=== PATIENT | male | born 1970 | race Hispanic/Latino ===

== ENCOUNTER 2019-01-09 12:39 | Emergency (ER) | payer SELFPAY ==
[~2019-01-09 12:39] MED LIST: INSNPH SQ; METF500T3 PO; RIVA10TA PO; TRAM50TA4 PO; [UNRECOGNIZED DRUG - CODE] MC
[2019-01-09] MEDS ORDERED: IBUPROFEN 600 MG TABLET ONE (13:22)
== END 2019-01-09 13:46 | disposition home or self-care (01) ==
LOC: EDH 12:39
DX: S92.311A Displaced fracture of first metatarsal bone, right foot, initial encounter for closed fracture (principal); E11.9 Type 2 diabetes mellitus without complications; Z72.0 Tobacco use; X58.XXXA Exposure to other specified factors, initial encounter; Y93.89 Activity, other specified; Y92.69 Other specified industrial and construction area as the place of occurrence of the external cause; Y99.8 Other external cause status
CPT/HCPCS: 73630

== ENCOUNTER 2020-06-20 14:12 | Emergency (ER) | payer SELFPAY ==
[2020-06-20] MEDS ORDERED: KETOROLAC 30MG VIAL (30MG/ML) ONE (15:09)
[2020-06-20] MEDS ORDERED: HYDROCODONE/ACETAMINOPHEN 5/325 MG TAB ONE (15:10)
== END 2020-06-20 16:17 | disposition home or self-care (01) ==
LOC: EDH 14:12
DX: M54.30 Sciatica, unspecified side (principal); E11.9 Type 2 diabetes mellitus without complications
CPT/HCPCS: 72192; 96372; 99284; J1885

== ENCOUNTER 2020-10-13 13:51 | Inpatient (IN) | payer OTHER ==
[~2020-10-13] VITALS: Ht 177.8 cm; Wt 73.0 kg
[2020-10-13 16:13] LABS: BASOPHILS % (AUTO) 0.4 % (0.0-5.0); EOSINOPHILS % (AUTO) 0.2 % (0.0-8.0); LYMPHOCYTES % (AUTO) 3.3 % (21.0-51.0); MEAN CORPUSCULAR HEMOGLOBIN 31.7 pg (27.0-33.0); MEAN CORPUSCULAR HGB CONC 33.5 g/dL (32.0-36.0); MEAN CORPUSCULAR VOLUME 94.6 fL (79-99); MONOCYTES % (AUTO) 7.8 % (3.0-13.0); NEUTROPHILS % (AUTO) 87.4 % (40.0-77.0); PLATELET COUNT (AUTO) 339 K/uL (130-400); RED BLOOD CELL COUNT(AUTO) 4.23 MIL/uL (4.50-6.20); RED CELL DISTRIBUTION WIDTH 12.3 % (11.0-15.5); WHITE BLOOD COUNT (AUTO) 18.6 K/uL (4.8-10.8)
[2020-10-13 16:33] LABS: CREATININE 0.8 mg/dL (0.5-1.5); POTASSIUM 4.3 mmol/L (3.5-5.1)
[2020-10-13 16:37] LABS: ALBUMIN 3.4 g/dL (3.5-5.0); BILIRUBIN,TOTAL 0.5 mg/dL (0.2-1.0); TOTAL PROTEIN, SERUM 8.8 g/dL (6.0-8.3)
[2020-10-13] MEDS ORDERED: ZOSYN 3.375GM+NS 50ML 50 ML IV ONE (16:58)
[2020-10-13] MEDS ORDERED: INSULIN HUMULIN R 100 UNIT/ML 3ML ONE (16:59)
[2020-10-13] MEDS ORDERED: ONDANSETRON HCL 4 MG/2 ML VIAL ONE (18:15)
[2020-10-13] MEDS ORDERED: MORPHINE SULFATE 2 MG/ML 1ML SYG ONE ×2 (18:15→23:16)
[2020-10-13 18:45] LABS: ABG OXYGEN SATURATION 41.3 % (95.0-99.0); BASE EXCESS,VENOUS BLOOD GAS -4.3 (-2.0-3.0); HCO3,VENOUS BLOOD GAS 20.6 (21.0-28.0); PCO2,VENOUS BLOOD GAS 37 (35-48); PH,VENOUS BLOOD GAS 7.359 (7.350-7.450)
[2020-10-13] MEDS: CEFEPIME HCL 2 GM VIAL IVP SCH (19:15)
[2020-10-13] MEDS ORDERED: GLUCAGON 1MG KIT 1 MG ML IM PRN (19:15)
[2020-10-13] MEDS: SODIUM CHLORIDE 0.9% 1000ML 1,000 ML IV SCH (19:15)
[2020-10-13] MEDS ORDERED: VANCOMYCIN PROTOCOL PER PHARMACY IV SCH (19:15)
[2020-10-13] MEDS ORDERED: ONDANSETRON HCL 4 MG/2 ML VIAL IV PRN (19:15)
[2020-10-13] MEDS ORDERED: DEXTROSE 50%-WATER 50 ML DISP.SYRIN IV PRN (19:15)
[2020-10-13] MEDS: INSULIN HUMULIN R 100 UNIT/ML 3ML SQ SCH (21:00)
[2020-10-13] MEDS: VANCOMYCIN 1GM+NS 250ML 250 ML IV SCH (21:00)
[2020-10-13] MEDS: INSULIN GLARGINE 100 UNITS/ML 10 ML VIAL SQ SCH (21:00)
[2020-10-13] MEDS: FAMOTIDINE/PF 20 MG/2 ML VIAL IV SCH (21:00)
[2020-10-13] MEDS ORDERED: CEFEPIME HCL 2 GM VIAL ONE (21:29)
[2020-10-13] MEDS ORDERED: FAMOTIDINE/PF 20 MG/2 ML VIAL IV ONE (21:30)
[2020-10-13] MEDS ORDERED: SODIUM CHLORIDE 0.9% 1000ML 1,000 ML IV ONE (21:32)
[2020-10-13] MEDS ORDERED: SODIUM CHLORIDE 0.9% 100 ML IV ONE (21:32)
[2020-10-13] MEDS: METRONIDAZOLE 500MG/100ML BAG 100 ML IVPB SCH (22:00)
[2020-10-13 22:09] LABS: APPEARANCE,URINE Clear (CLEAR); BILIRUBIN,URINE Negative (NEGATIVE); COLOR,URINE Yellow (YELLOW); GLUCOSE, URINE (UA) >=1000 mg/dL (NEGATIVE); KETONES,URINE >=160 mg/dL (NEGATIVE); LEUKOCYTE ESTERASE ,URINE Negative (NEGATIVE); NITRATE,URINE Negative (NEGATIVE); OCCULT BLOOD,URINE Negative (NEGATIVE); PH,URINE 5.5 (5.0-8.0); PROTEIN,URINE POS 2+ mg/dL (NEGATIVE)
[2020-10-13 22:13] LABS: BACTERIA,URINE Rare /HPF (None Seen); MUCUS,URINE Few LPF (None Seen); RBC,URINE 0-1 /HPF (0-1); SQUAMOUS EPITHELIAL CELL,UR Few /HPF (0-2); WBC,URINE 0-1 /HPF (0-1)
[2020-10-13] MEDS ORDERED: METRONIDAZOLE 500MG/100ML BAG 100 ML ONE (23:16)
[2020-10-13] MEDS ORDERED: VANCOMYCIN 1GM+NS 250ML 250 ML IV ONE (23:16)
[2020-10-13] MEDS ORDERED: SODIUM CHLORIDE 0.9% 250 ML IV ONE (23:17)
[2020-10-14] VITALS (20 sets, daily range): BP systolic 130–165; BP diastolic 76–100
[2020-10-14] MEDS: CEFEPIME HCL 2 GM VIAL IVP SCH ×3 (03:15→18:49)
[2020-10-14] MEDS: SODIUM CHLORIDE 0.9% 1000ML 1,000 ML IV SCH ×2 (05:15→18:49)
[2020-10-14] MEDS: METRONIDAZOLE 500MG/100ML BAG 100 ML IVPB SCH ×3 (06:00→23:23)
[2020-10-14] MEDS: INSULIN HUMULIN R 100 UNIT/ML 3ML SQ SCH ×4 (06:23→21:00)
[2020-10-14 08:45] LABS: HEMOGLOBIN A1C 12.7 % (4.0-6.0)
[2020-10-14] MEDS: ENOXAPARIN SODIUM 30 MG/0.3 ML SQ SCH (09:00)
[2020-10-14 09:02] LABS: ALBUMIN 2.5 g/dL (3.5-5.0); BILIRUBIN,TOTAL 0.3 mg/dL (0.2-1.0); CREATININE 0.7 mg/dL (0.5-1.5); HEMATOCRIT 32.3 % (42-54); MEAN CORPUSCULAR HEMOGLOBIN 30.9 pg (27.0-33.0); MEAN CORPUSCULAR HGB CONC 33.7 g/dL (32.0-36.0); MEAN CORPUSCULAR VOLUME 91.5 fL (79-99); POTASSIUM 3.5 mmol/L (3.5-5.1); RED BLOOD CELL COUNT(AUTO) 3.53 MIL/uL (4.50-6.20); RED CELL DISTRIBUTION WIDTH 12.2 % (11.0-15.5); THYROID STIMULATING HORMONE 0.48 uIU/mL (0.36-3.74); TOTAL PROTEIN, SERUM 6.6 g/dL (6.0-8.3)
[2020-10-14] MEDS: VANCOMYCIN 1GM+NS 250ML 250 ML IV SCH ×2 (09:11→21:00)
[2020-10-14] MEDS: FAMOTIDINE/PF 20 MG/2 ML VIAL IV SCH ×2 (09:11→23:23)
[2020-10-14 09:20] LABS: CRP QUANTITATIVE 220.7 mg/L (0.00-9.0)
[2020-10-14] MEDS: MORPHINE SULFATE 2 MG/ML 1ML SYG IV PRN (11:10)
[2020-10-14] MEDS ORDERED: FOLIC ACID 5 MG/ML 10 ML VIAL IV SCH (11:30)
[2020-10-14] MEDS ORDERED: LORAZEPAM 2 MG/ML 1 ML VIAL IVP PRN (11:45)
[2020-10-14] MEDS ORDERED: PHARMACY COMMUNICATION MISC PRN (11:45)
[2020-10-14] MEDS ORDERED: CHLORDIAZEPOXIDE HCL 25 MG CAP PO PRN (11:45)
[2020-10-14] MEDS ORDERED: COMPOUND IV REFRIGERATED 1 EACH IVSOLN MISC PRN (11:45)
[2020-10-14] MEDS: THIAMINE HCL 100 MG/ML 2ML VIAL IVP SCH (11:47)
[2020-10-14] MEDS ORDERED: LIDOCAINE HCL MPF 1% 5ML VIAL ONE (21:00)
[2020-10-14] MEDS ORDERED: SUCCINYLCHOLINE 200MG/10ML SYR ONE (21:00)
[2020-10-14] MEDS: INSULIN GLARGINE 100 UNITS/ML 10 ML VIAL SQ SCH (21:00)
[2020-10-14] MEDS ORDERED: LIDOCAINE HCL 1% 20 ML VIAL ONE (21:01)
[2020-10-14] MEDS ORDERED: PROPOFOL 10 MG/ML 20ML VIAL IV ONE (21:01)
[2020-10-14] MEDS ORDERED: BUPIVACAINE/PF 0.5% 10ML VIAL ONE (21:01)
[2020-10-14] MEDS ORDERED: MIDAZOLAM HCL 1 MG/ML 2ML VIAL ONE (21:01)
[2020-10-14] MEDS ORDERED: FENTANYL CITRATE PF 50 MCG/1 ML 2ML VIAL ONE (21:01)
[2020-10-14] MEDS ORDERED: EPHEDRINE SULFATE 50 MG/ML AMPULE ONE (21:16)
[2020-10-14] MEDS ORDERED: ALBUMIN (HUMAN) 5% 250 ML IV ONE (21:47)
[2020-10-15] VITALS (13 sets, daily range): BP systolic 117–162; BP diastolic 61–99
[2020-10-15] MEDS: SODIUM CHLORIDE 0.9% 1000ML 1,000 ML IV SCH ×3 (00:34→21:58)
[2020-10-15] MEDS: CEFEPIME HCL 2 GM VIAL IVP SCH ×3 (03:30→21:57)
[2020-10-15] MEDS: METRONIDAZOLE 500MG/100ML BAG 100 ML IVPB SCH ×3 (05:25→21:57)
[2020-10-15] MEDS: INSULIN HUMULIN R 100 UNIT/ML 3ML SQ SCH ×7 (06:16→21:00)
[2020-10-15] MEDS: INSULIN GLARGINE 100 UNITS/ML 10 ML VIAL SQ SCH (07:00)
[2020-10-15] MEDS ORDERED: INSULIN GLARGINE 100 UNITS/ML 10 ML VIAL SQ SCH (08:00)
[2020-10-15 08:47] LABS: HEMATOCRIT 32.5 % (42-54); MEAN CORPUSCULAR HEMOGLOBIN 31.3 pg (27.0-33.0); MEAN CORPUSCULAR HGB CONC 33.5 g/dL (32.0-36.0); MEAN CORPUSCULAR VOLUME 93.4 fL (79-99); RED BLOOD CELL COUNT(AUTO) 3.48 MIL/uL (4.50-6.20); RED CELL DISTRIBUTION WIDTH 12.1 % (11.0-15.5); WHITE BLOOD COUNT (AUTO) 11.7 K/uL (4.8-10.8)
[2020-10-15] MEDS: FAMOTIDINE/PF 20 MG/2 ML VIAL IV SCH ×2 (08:48→21:58)
[2020-10-15] MEDS: VANCOMYCIN 1GM+NS 250ML 250 ML IV SCH (08:48)
[2020-10-15] MEDS: THIAMINE HCL 100 MG/ML 2ML VIAL IVP SCH ×2 (08:48→13:26)
[2020-10-15] MEDS: ENOXAPARIN SODIUM 30 MG/0.3 ML SQ SCH (08:49)
[2020-10-15 09:08] LABS: ALBUMIN 2.5 g/dL (3.5-5.0); BILIRUBIN,TOTAL 0.4 mg/dL (0.2-1.0); CREATININE 0.7 mg/dL (0.5-1.5); POTASSIUM 3.3 mmol/L (3.5-5.1); TOTAL PROTEIN, SERUM 6.6 g/dL (6.0-8.3)
[2020-10-15] MEDS ORDERED: COMPOUND IV REFRIGERATED 1 EACH IVSOLN MISC PRN (09:45)
[2020-10-15] MEDS: VANCOMYCIN 1.25 GM in SODIUM CHLORIDE 0.9% 250 ML IV SCH ×2 (09:54→21:57)
[2020-10-15] MEDS: MORPHINE SULFATE 2 MG/ML 1ML SYG IV PRN ×3 (09:58→22:53)
[2020-10-15] MEDS ORDERED: POTASSIUM CHLORIDE 20MEQ/100ML 100 ML IV PRN (11:00)
[2020-10-15] MEDS ORDERED: POTASSIUM CHLORIDE 10% ELIXIR 20 MEQ/15 ML UDCUP PO PRN (11:00)
[2020-10-15] MEDS ORDERED: MAGNESIUM 2GM PREMIX 50ML 50 ML IV SCH (11:00)
[2020-10-15] MEDS: FOLIC ACID 5 MG/ML 10 ML VIAL IV SCH (13:26)
[2020-10-16] MEDS: CEFEPIME HCL 2 GM VIAL IVP SCH ×2 (02:44→10:39)
[2020-10-16 03:00] VITALS: BP 151/85
[2020-10-16] MEDS: METRONIDAZOLE 500MG/100ML BAG 100 ML IVPB SCH ×2 (05:41→14:04)
[2020-10-16] MEDS: SODIUM CHLORIDE 0.9% 1000ML 1,000 ML IV SCH (05:47)
[2020-10-16 06:01] LABS: BASOPHILS % (AUTO) 0.4 % (0.0-5.0); EOSINOPHILS % (AUTO) 4.9 % (0.0-8.0); HEMATOCRIT 35.3 % (42-54); LYMPHOCYTES % (AUTO) 11.8 % (21.0-51.0); MEAN CORPUSCULAR HEMOGLOBIN 30.7 pg (27.0-33.0); MEAN CORPUSCULAR HGB CONC 33.4 g/dL (32.0-36.0); MEAN CORPUSCULAR VOLUME 91.9 fL (79-99); MONOCYTES % (AUTO) 10.5 % (3.0-13.0); NEUTROPHILS % (AUTO) 70.6 % (40.0-77.0); PLATELET COUNT (AUTO) 384 K/uL (130-400); RED BLOOD CELL COUNT(AUTO) 3.84 MIL/uL (4.50-6.20)
[2020-10-16 06:13] LABS: CREATININE 0.6 mg/dL (0.5-1.5); CRP QUANTITATIVE 102.3 mg/L (0.00-9.0); MAGNESIUM 1.7 mg/dL (1.80-2.40); POTASSIUM 3.6 mmol/L (3.5-5.1)
[2020-10-16] MEDS: INSULIN GLARGINE 100 UNITS/ML 10 ML VIAL SQ SCH (06:22)
[2020-10-16] MEDS: INSULIN HUMULIN R 100 UNIT/ML 3ML SQ SCH ×7 (06:23→20:25)
[2020-10-16 08:00] VITALS: BP 154/98
[2020-10-16] MEDS: POTASSIUM CHLORIDE 20 MEQ ERTAB PO PRN (08:17)
[2020-10-16] MEDS: FAMOTIDINE/PF 20 MG/2 ML VIAL IV SCH (08:17)
[2020-10-16] MEDS: THIAMINE HCL 100 MG/ML 2ML VIAL IVP SCH ×2 (08:18→10:42)
[2020-10-16] MEDS: AMLODIPINE BESYLATE 5 MG TAB PO SCH (08:18)
[2020-10-16] MEDS: ENOXAPARIN SODIUM 30 MG/0.3 ML SQ SCH (08:19)
[2020-10-16] MEDS: FOLIC ACID 5 MG/ML 10 ML VIAL IV SCH (10:39)
[2020-10-16] MEDS: VANCOMYCIN 1.25 GM in SODIUM CHLORIDE 0.9% 250 ML IV SCH (10:43)
[2020-10-16 11:49] VITALS: BP 150/74
[2020-10-16] MEDS: LISINOPRIL 5 MG TABLET PO SCH (14:04)
[2020-10-16] MEDS: MORPHINE SULFATE 2 MG/ML 1ML SYG IV PRN ×2 (14:06→21:26)
[2020-10-16 16:00] VITALS: BP 155/84
[2020-10-16] MEDS ORDERED: GABAPENTIN 300 MG CAPSULE PO SCH (16:45)
[2020-10-16] MEDS: NAFCILLIN 1GM+NS 100ML 100 ML IV SCH ×2 (18:14→23:16)
[2020-10-16 19:00] VITALS: BP 137/82
[2020-10-16] MEDS: GABAPENTIN 300 MG CAPSULE PO SCH (20:04)
[2020-10-16] MEDS: FAMOTIDINE 20MG TAB 20 MG TAB PO SCH (20:04)
[2020-10-16] MEDS: METOPROLOL TARTRATE 25 MG TAB PO SCH (20:04)
[2020-10-16 23:00] VITALS: BP 140/95
[2020-10-17 03:00] VITALS: BP 160/96
[2020-10-17 05:11] LABS: RETICULOCYTE % (AUTO) 1.04 % (0.42-2.23)
[2020-10-17 05:23] LABS: % IRON SATURATION 26.1 % (30-44)
[2020-10-17] MEDS: INSULIN HUMULIN R 100 UNIT/ML 3ML SQ SCH ×6 (05:31→21:00)
[2020-10-17] MEDS: NAFCILLIN 1GM+NS 100ML 100 ML IV SCH ×3 (05:53→17:59)
[2020-10-17] MEDS: INSULIN GLARGINE 100 UNITS/ML 10 ML VIAL SQ SCH (05:54)
[2020-10-17] MEDS ORDERED: INSULIN HUMULIN R 100 UNIT/ML 3ML SQ SCH (07:30)
[2020-10-17 08:00] VITALS: BP 156/93
[2020-10-17] MEDS: LISINOPRIL 5 MG TABLET PO SCH ×2 (08:48→14:06)
[2020-10-17] MEDS: FAMOTIDINE 20MG TAB 20 MG TAB PO SCH ×2 (08:48→20:50)
[2020-10-17] MEDS: FOLIC ACID 1 MG TABLET PO SCH (08:48)
[2020-10-17] MEDS: AMLODIPINE BESYLATE 5 MG TAB PO SCH (08:48)
[2020-10-17] MEDS: GABAPENTIN 300 MG CAPSULE PO SCH ×2 (08:49→20:50)
[2020-10-17] MEDS: METOPROLOL TARTRATE 25 MG TAB PO SCH ×3 (08:58→20:50)
[2020-10-17] MEDS: THIAMINE HCL 100 MG TABLET PO SCH (08:58)
[2020-10-17] MEDS: ENOXAPARIN SODIUM 30 MG/0.3 ML SQ SCH (09:00)
[2020-10-17] MEDS ORDERED: METOPROLOL TARTRATE 25 MG TAB PO SCH (09:30)
[2020-10-17] MEDS ORDERED: LISINOPRIL 5 MG TABLET PO SCH (09:30)
[2020-10-17] MEDS ORDERED: COMPOUND IV MISC 1 EACH IVSOLN MISC PRN (09:45)
[2020-10-17 12:00] VITALS: BP 152/92
[2020-10-17] MEDS: MORPHINE SULFATE 2 MG/ML 1ML SYG IV PRN ×2 (14:07→22:04)
[2020-10-17 16:00] VITALS: BP 135/89
[2020-10-17 19:23] VITALS: BP 163/98
[2020-10-17 23:57] VITALS: BP 159/97
[2020-10-18 03:51] VITALS: BP 156/92
[2020-10-18 05:12] LABS: BASOPHILS % (AUTO) 0.4 % (0.0-5.0); EOSINOPHILS % (AUTO) 2.3 % (0.0-8.0); HEMATOCRIT 34.6 % (42-54); MEAN CORPUSCULAR HGB CONC 32.9 g/dL (32.0-36.0); MEAN CORPUSCULAR VOLUME 91.1 fL (79-99); MONOCYTES % (AUTO) 8.3 % (3.0-13.0); PLATELET COUNT (AUTO) 419 K/uL (130-400); RED CELL DISTRIBUTION WIDTH 12.1 % (11.0-15.5); WHITE BLOOD COUNT (AUTO) 9.9 K/uL (4.8-10.8)
[2020-10-18] MEDS: NAFCILLIN 1GM+NS 100ML 100 ML IV SCH ×4 (05:15→17:03)
[2020-10-18 05:26] LABS: ALBUMIN 2.4 g/dL (3.5-5.0); BILIRUBIN,TOTAL 0.2 mg/dL (0.2-1.0); CREATININE 0.5 mg/dL (0.5-1.5); CRP QUANTITATIVE 40.3 mg/L (0.00-9.0); POTASSIUM 3.7 mmol/L (3.5-5.1); TOTAL PROTEIN, SERUM 6.6 g/dL (6.0-8.3)
[2020-10-18] MEDS: INSULIN GLARGINE 100 UNITS/ML 10 ML VIAL SQ SCH (06:07)
[2020-10-18] MEDS: INSULIN HUMULIN R 100 UNIT/ML 3ML SQ SCH ×5 (06:08→20:38)
[2020-10-18 06:54] LABS: ERYTHROCYTE SEDIMENTATION RATE 85 MM/HR (0-20)
[2020-10-18 08:00] VITALS: BP 158/103
[2020-10-18] MEDS: METOPROLOL TARTRATE 25 MG TAB PO SCH ×3 (08:24→20:37)
[2020-10-18] MEDS: POTASSIUM CHLORIDE 20 MEQ ERTAB PO PRN ×2 (08:24→13:27)
[2020-10-18] MEDS: FAMOTIDINE 20MG TAB 20 MG TAB PO SCH ×2 (08:24→20:37)
[2020-10-18] MEDS: LISINOPRIL 5 MG TABLET PO SCH ×2 (08:25→13:27)
[2020-10-18] MEDS: THIAMINE HCL 100 MG TABLET PO SCH (08:25)
[2020-10-18] MEDS: GABAPENTIN 300 MG CAPSULE PO SCH ×2 (08:25→20:37)
[2020-10-18] MEDS: ASCORBIC ACID 500 MG TAB PO SCH (08:25)
[2020-10-18] MEDS: FOLIC ACID 1 MG TABLET PO SCH (08:25)
[2020-10-18] MEDS: AMLODIPINE BESYLATE 5 MG TAB PO SCH (08:25)
[2020-10-18] MEDS: FERROUS SULFATE 325 MG TABLET.DR PO SCH (08:25)
[2020-10-18] MEDS: ENOXAPARIN SODIUM 30 MG/0.3 ML SQ SCH (08:26)
[2020-10-18] MEDS: IRON SUCROSE COMPLEX 300 MG in SODIUM CHLORIDE 0.9% 50 ML IV SCH (10:11)
[2020-10-18 11:59] VITALS: BP 158/92
[2020-10-18] MEDS ORDERED: INSULIN HUMULIN R 100 UNIT/ML 3ML SQ SCH (14:00)
[2020-10-18 16:42] VITALS: BP 106/66
[2020-10-18] MEDS: MORPHINE SULFATE 2 MG/ML 1ML SYG IV PRN (18:04)
[2020-10-18 20:09] VITALS: BP 149/94
[2020-10-18 23:25] VITALS: BP 145/87
[2020-10-19] VITALS (13 sets, daily range): BP systolic 98–160; BP diastolic 66–99
[2020-10-19] MEDS: NAFCILLIN 1GM+NS 100ML 100 ML IV SCH ×5 (00:10→23:56)
[2020-10-19 06:28] LABS: CREATININE 0.5 mg/dL (0.5-1.5); POTASSIUM 3.7 mmol/L (3.5-5.1)
[2020-10-19] MEDS: INSULIN GLARGINE 100 UNITS/ML 10 ML VIAL SQ SCH (06:31)
[2020-10-19] MEDS: INSULIN HUMULIN R 100 UNIT/ML 3ML SQ SCH ×7 (06:32→21:28)
[2020-10-19 06:42] LABS: BASOPHILS % (AUTO) 0.8 % (0.0-5.0); EOSINOPHILS % (AUTO) 8.1 % (0.0-8.0); HEMATOCRIT 35.3 % (42-54); MEAN CORPUSCULAR HEMOGLOBIN 30.1 pg (27.0-33.0); MEAN CORPUSCULAR HGB CONC 32.9 g/dL (32.0-36.0); MEAN CORPUSCULAR VOLUME 91.7 fL (79-99); MONOCYTES % (AUTO) 10.3 % (3.0-13.0); PLATELET COUNT (AUTO) 434 K/uL (130-400); RED BLOOD CELL COUNT(AUTO) 3.85 MIL/uL (4.50-6.20); RED CELL DISTRIBUTION WIDTH 12.5 % (11.0-15.5); WHITE BLOOD COUNT (AUTO) 7.4 K/uL (4.8-10.8)
[2020-10-19 07:25] LABS: ALBUMIN 2.6 g/dL (3.5-5.0); BILIRUBIN,TOTAL 0.2 mg/dL (0.2-1.0); TOTAL PROTEIN, SERUM 6.8 g/dL (6.0-8.3)
[2020-10-19] MEDS: ENOXAPARIN SODIUM 30 MG/0.3 ML SQ SCH (09:00)
[2020-10-19] MEDS: ASCORBIC ACID 500 MG TAB PO SCH (09:44)
[2020-10-19] MEDS: FAMOTIDINE 20MG TAB 20 MG TAB PO SCH ×2 (09:44→21:26)
[2020-10-19] MEDS: GABAPENTIN 300 MG CAPSULE PO SCH ×2 (09:44→21:26)
[2020-10-19] MEDS: LISINOPRIL 5 MG TABLET PO SCH (09:45)
[2020-10-19] MEDS: AMLODIPINE BESYLATE 5 MG TAB PO SCH (09:45)
[2020-10-19] MEDS: THIAMINE HCL 100 MG TABLET PO SCH (09:45)
[2020-10-19] MEDS: FERROUS SULFATE 325 MG TABLET.DR PO SCH (09:46)
[2020-10-19] MEDS: FOLIC ACID 1 MG TABLET PO SCH (09:46)
[2020-10-19] MEDS: METOPROLOL TARTRATE 25 MG TAB PO SCH ×2 (09:47→21:26)
[2020-10-19] MEDS: IRON SUCROSE COMPLEX 300 MG in SODIUM CHLORIDE 0.9% 50 ML IV SCH (09:49)
[2020-10-19] MEDS: MORPHINE SULFATE 2 MG/ML 1ML SYG IVP PRN ×2 (11:02→21:29)
[2020-10-19] MEDS ORDERED: FENTANYL CITRATE PF 50 MCG/1 ML 2ML VIAL ONE ×2 (13:00→13:48)
[2020-10-19] MEDS ORDERED: MIDAZOLAM HCL 1 MG/ML 2ML VIAL ONE (13:00)
[2020-10-19] MEDS ORDERED: PROPOFOL 10 MG/ML 20ML VIAL IV ONE (13:01)
[2020-10-19] MEDS ORDERED: SODIUM CHLORIDE 0.9% 1000ML 1,000 ML IV ONE (13:21)
[2020-10-19] MEDS ORDERED: BUPIVACAINE/PF 0.5% 30ML VIAL ONE (13:23)
[2020-10-19] MEDS ORDERED: LIDOCAINE HCL 1% 20 ML VIAL ONE (13:23)
[2020-10-19] MEDS: POTASSIUM CHLORIDE 20 MEQ ERTAB PO PRN (18:17)
[2020-10-20] MEDS: MORPHINE SULFATE 2 MG/ML 1ML SYG IVP PRN ×3 (01:56→21:29)
[2020-10-20 03:44] VITALS: BP 115/66
[2020-10-20 05:00] LABS: BASOPHILS % (AUTO) 0.4 % (0.0-5.0); EOSINOPHILS % (AUTO) 5.5 % (0.0-8.0); HEMATOCRIT 32.6 % (42-54); MEAN CORPUSCULAR HEMOGLOBIN 30.8 pg (27.0-33.0); MEAN CORPUSCULAR HGB CONC 33.1 g/dL (32.0-36.0); MEAN CORPUSCULAR VOLUME 92.9 fL (79-99); MONOCYTES % (AUTO) 11.1 % (3.0-13.0); NEUTROPHILS % (AUTO) 67.9 % (40.0-77.0); PLATELET COUNT (AUTO) 398 K/uL (130-400); RED BLOOD CELL COUNT(AUTO) 3.51 MIL/uL (4.50-6.20); RED CELL DISTRIBUTION WIDTH 12.4 % (11.0-15.5); WHITE BLOOD COUNT (AUTO) 9.4 K/uL (4.8-10.8)
[2020-10-20] MEDS: NAFCILLIN 1GM+NS 100ML 100 ML IV SCH ×3 (05:16→16:56)
[2020-10-20 05:22] LABS: ALBUMIN 2.6 g/dL (3.5-5.0); BILIRUBIN,TOTAL 0.2 mg/dL (0.2-1.0); CREATININE 0.6 mg/dL (0.5-1.5); POTASSIUM 4.2 mmol/L (3.5-5.1); TOTAL PROTEIN, SERUM 6.6 g/dL (6.0-8.3)
[2020-10-20] MEDS: INSULIN GLARGINE 100 UNITS/ML 10 ML VIAL SQ SCH (06:04)
[2020-10-20] MEDS: INSULIN HUMULIN R 100 UNIT/ML 3ML SQ SCH ×7 (06:05→21:15)
[2020-10-20 08:11] VITALS: BP 132/81
[2020-10-20] MEDS: IRON SUCROSE COMPLEX 300 MG in SODIUM CHLORIDE 0.9% 50 ML IV SCH (09:00)
[2020-10-20] MEDS: GABAPENTIN 300 MG CAPSULE PO SCH ×2 (09:29→21:14)
[2020-10-20] MEDS: AMLODIPINE BESYLATE 5 MG TAB PO SCH (09:29)
[2020-10-20] MEDS: FOLIC ACID 1 MG TABLET PO SCH (09:29)
[2020-10-20] MEDS: THIAMINE HCL 100 MG TABLET PO SCH (09:29)
[2020-10-20] MEDS: ASCORBIC ACID 500 MG TAB PO SCH (09:29)
[2020-10-20] MEDS: METOPROLOL TARTRATE 25 MG TAB PO SCH ×2 (09:30→21:14)
[2020-10-20] MEDS: FAMOTIDINE 20MG TAB 20 MG TAB PO SCH ×2 (09:30→21:14)
[2020-10-20] MEDS: LISINOPRIL 5 MG TABLET PO SCH (09:31)
[2020-10-20] MEDS: ENOXAPARIN SODIUM 30 MG/0.3 ML SQ SCH (09:32)
[2020-10-20] MEDS: FERROUS SULFATE 325 MG TABLET.DR PO SCH (09:32)
[2020-10-20 12:10] VITALS: BP 122/81
[2020-10-20 16:30] VITALS: BP 149/99
[2020-10-20 19:16] VITALS: BP 122/76
[2020-10-20 23:52] VITALS: BP 134/57
[2020-10-21] VITALS (7 sets, daily range): BP systolic 109–150; BP diastolic 63–87
[2020-10-21] MEDS: NAFCILLIN 1GM+NS 100ML 100 ML IV SCH ×3 (00:30→12:13)
[2020-10-21 05:58] LABS: BASOPHILS % (AUTO) 0.5 % (0.0-5.0); EOSINOPHILS % (AUTO) 4.9 % (0.0-8.0); HEMATOCRIT 32.3 % (42-54); LYMPHOCYTES % (AUTO) 13.4 % (21.0-51.0); MEAN CORPUSCULAR HGB CONC 32.8 g/dL (32.0-36.0); MEAN CORPUSCULAR VOLUME 94.4 fL (79-99); NEUTROPHILS % (AUTO) 67.1 % (40.0-77.0); PLATELET COUNT (AUTO) 386 K/uL (130-400); RED BLOOD CELL COUNT(AUTO) 3.42 MIL/uL (4.50-6.20); RED CELL DISTRIBUTION WIDTH 12.6 % (11.0-15.5); WHITE BLOOD COUNT (AUTO) 10.7 K/uL (4.8-10.8)
[2020-10-21 06:13] LABS: CREATININE 0.6 mg/dL (0.5-1.5); POTASSIUM 4.1 mmol/L (3.5-5.1)
[2020-10-21] MEDS: INSULIN HUMULIN R 100 UNIT/ML 3ML SQ SCH ×7 (06:20→20:57)
[2020-10-21] MEDS: MORPHINE SULFATE 2 MG/ML 1ML SYG IVP PRN (06:39)
[2020-10-21] MEDS ORDERED: INSULIN GLARGINE 100 UNITS/ML 10 ML VIAL SQ SCH (07:00)
[2020-10-21] MEDS: IRON SUCROSE COMPLEX 300 MG in SODIUM CHLORIDE 0.9% 50 ML IV SCH (09:00)
[2020-10-21] MEDS ORDERED: ACETAMINOPHEN-CODEINE 300/30MG TAB PO PRN (09:45)
[2020-10-21] MEDS: GABAPENTIN 300 MG CAPSULE PO SCH ×2 (10:45→20:52)
[2020-10-21] MEDS: ENOXAPARIN SODIUM 30 MG/0.3 ML SQ SCH (10:45)
[2020-10-21] MEDS: FAMOTIDINE 20MG TAB 20 MG TAB PO SCH ×2 (10:46→20:51)
[2020-10-21] MEDS: LISINOPRIL 5 MG TABLET PO SCH (10:48)
[2020-10-21] MEDS: THIAMINE HCL 100 MG TABLET PO SCH (10:48)
[2020-10-21] MEDS: AMLODIPINE BESYLATE 5 MG TAB PO SCH (10:48)
[2020-10-21] MEDS: FERROUS SULFATE 325 MG TABLET.DR PO SCH (10:48)
[2020-10-21] MEDS: ASCORBIC ACID 500 MG TAB PO SCH (10:48)
[2020-10-21] MEDS: METOPROLOL TARTRATE 25 MG TAB PO SCH ×2 (10:48→20:51)
[2020-10-21] MEDS: FOLIC ACID 1 MG TABLET PO SCH (10:48)
[2020-10-21] MEDS: LEVOFLOXACIN 750 MG TABLET PO SCH (14:00)
[2020-10-21] MEDS: CEFUROXIME AXETIL 250 MG TABLET PO SCH ×2 (14:00→20:51)
[2020-10-21] MEDS: ACETAMINOPHEN-CODEINE 300/30MG TAB PO PRN (20:57)
[2020-10-22 03:32] VITALS: BP 114/72
[2020-10-22 05:14] LABS: BASOPHILS % (AUTO) 0.5 % (0.0-5.0); EOSINOPHILS % (AUTO) 6.5 % (0.0-8.0); HEMATOCRIT 32.5 % (42-54); LYMPHOCYTES % (AUTO) 17.9 % (21.0-51.0); MEAN CORPUSCULAR HEMOGLOBIN 30.9 pg (27.0-33.0); MEAN CORPUSCULAR HGB CONC 32.3 g/dL (32.0-36.0); MEAN CORPUSCULAR VOLUME 95.6 fL (79-99); MONOCYTES % (AUTO) 12.1 % (3.0-13.0); NEUTROPHILS % (AUTO) 59.3 % (40.0-77.0); PLATELET COUNT (AUTO) 404 K/uL (130-400); RED CELL DISTRIBUTION WIDTH 12.5 % (11.0-15.5); WHITE BLOOD COUNT (AUTO) 9.3 K/uL (4.8-10.8)
[2020-10-22 05:24] LABS: CREATININE 0.7 mg/dL (0.5-1.5); POTASSIUM 4.5 mmol/L (3.5-5.1)
[2020-10-22] MEDS: INSULIN HUMULIN R 100 UNIT/ML 3ML SQ SCH ×6 (06:40→17:00)
[2020-10-22] MEDS: ACETAMINOPHEN-CODEINE 300/30MG TAB PO PRN ×2 (06:52→16:06)
[2020-10-22] MEDS ORDERED: INSULIN GLARGINE 100 UNITS/ML 10 ML VIAL SQ SCH (07:00)
[2020-10-22] MEDS ORDERED: Cefuroxime Axetil PO (07:54)
[2020-10-22] MEDS ORDERED: LEVO750T46 PO (07:54)
[2020-10-22 07:56] VITALS: BP 154/95
[2020-10-22] MEDS: CEFUROXIME AXETIL 250 MG TABLET PO SCH (08:44)
[2020-10-22] MEDS: LEVOFLOXACIN 750 MG TABLET PO SCH (08:44)
[2020-10-22] MEDS: FOLIC ACID 1 MG TABLET PO SCH (08:45)
[2020-10-22] MEDS: FERROUS SULFATE 325 MG TABLET.DR PO SCH (08:45)
[2020-10-22] MEDS: METOPROLOL TARTRATE 25 MG TAB PO SCH (08:45)
[2020-10-22] MEDS: GABAPENTIN 300 MG CAPSULE PO SCH (08:45)
[2020-10-22] MEDS: FAMOTIDINE 20MG TAB 20 MG TAB PO SCH (08:46)
[2020-10-22] MEDS: AMLODIPINE BESYLATE 5 MG TAB PO SCH (08:46)
[2020-10-22] MEDS: THIAMINE HCL 100 MG TABLET PO SCH (08:47)
[2020-10-22] MEDS: ASCORBIC ACID 500 MG TAB PO SCH (08:47)
[2020-10-22] MEDS: LISINOPRIL 5 MG TABLET PO SCH (08:47)
[2020-10-22] MEDS: IRON SUCROSE COMPLEX 300 MG in SODIUM CHLORIDE 0.9% 50 ML IV SCH (08:48)
[2020-10-22] MEDS: ENOXAPARIN SODIUM 30 MG/0.3 ML SQ SCH (08:48)
[2020-10-22 11:33] VITALS: BP 124/68
[2020-10-22 16:21] VITALS: BP 115/77
== END 2020-10-22 18:47 | disposition home or self-care (01) | DRG 579 ==
LOC: EDH 13:51 → EDHIP 13:52 → 4CH 10-14 04:00
PROVIDERS: ADMIT Internal Medicine; ATTEND Internal Medicine
PROC: 0Y6N0Z9 Detachment at Left Foot, Partial 1st Ray, Open Approach (ICD-10-PCS; principal; 2020-10-14 16:00)
PROC: 0KBW0ZZ Excision of Left Foot Muscle, Open Approach (ICD-10-PCS; 2020-10-19)
DX: S91.332A Puncture wound without foreign body, left foot, initial encounter (principal); E11.10 Type 2 diabetes mellitus with ketoacidosis without coma; M72.6 Necrotizing fasciitis; L03.116 Cellulitis of left lower limb; E11.52 Type 2 diabetes mellitus with diabetic peripheral angiopathy with gangrene; I96 Gangrene, not elsewhere classified; L02.612 Cutaneous abscess of left foot; M86.172 Other acute osteomyelitis, left ankle and foot; E11.40 Type 2 diabetes mellitus with diabetic neuropathy, unspecified; E11.65 Type 2 diabetes mellitus with hyperglycemia; B95.2 Enterococcus as the cause of diseases classified elsewhere; E11.41 Type 2 diabetes mellitus with diabetic mononeuropathy; E11.621 Type 2 diabetes mellitus with foot ulcer; E11.69 Type 2 diabetes mellitus with other specified complication; E61.1 Iron deficiency; E78.5 Hyperlipidemia, unspecified; G57.90 Unspecified mononeuropathy of unspecified lower limb; I10 Essential (primary) hypertension; B95.61 Methicillin susceptible Staphylococcus aureus infection as the cause of diseases classified elsewhere; L97.529 Non-pressure chronic ulcer of other part of left foot with unspecified severity; Y93.89 Activity, other specified; Y92.89 Other specified places as the place of occurrence of the external cause; Y99.8 Other external cause status; Z88.7 Allergy status to serum and vaccine; Z88.8 Allergy status to other drugs, medicaments and biological substances; Z79.4 Long term (current) use of insulin; Z91.19 Patient's noncompliance with other medical treatment and regimen; Z83.3 Family history of diabetes mellitus; Z82.49 Family history of ischemic heart disease and other diseases of the circulatory system
CPT/HCPCS: 36415; 36600; 71045; 73620; 73700; 73718; 76705; 80048; 80053; 80202; 81001; 82009; 82010; 82607; 82746; 82803; 82948; 83036; 83540; 83550; 83605; 83735; 84145; 84443; 85025; 85027; 85045; 85651; 86140; 87040; 87070; 87076; 87077; 87186; 87205; 93005; 93926; 97039; G0378; J0330; J0692; J1650; J1756; J1815; J2250; J2405; J2543; J2704; J3010; J3370; J3411; J3475; J3490; J7030; J7050; P9045